=== PATIENT | male | born 1985 | race African-American/Black ===

== ENCOUNTER 2018-01-18 16:02 | Emergency (ER) | payer MEDICARE ==
[~2018-01-18] VITALS: Ht 170.2 cm; Wt 82.6 kg
[2018-01-18] MEDS ORDERED: KETOROLAC TROMETHAMINE 30 MG INJ IM ONE (16:15)
[2018-01-18] MEDS ORDERED: KETOROLAC TROMETHAMINE 30 MG INJ ONE (16:21)
[2018-01-18] MEDS ORDERED: HYDROMORPHONE 1 MG/1 ML DISP.SYRIN IV ONE (16:30)
[2018-01-18] MEDS ORDERED: ETOMIDATE 20 MG/10 ML VIAL IV ONE (16:30)
[2018-01-18] MEDS ORDERED: HYDROMORPHONE 2 MG/1 ML DISP.SYRIN ONE (16:36)
[2018-01-18] MEDS ORDERED: ETOMIDATE 20 MG/10 ML VIAL ONE (16:38)
[2018-01-18 17:43] VITALS: BP 146/90
== END 2018-01-18 17:47 | disposition home or self-care (01) ==
LOC: ER 16:04
DX: S43.005A Unspecified dislocation of left shoulder joint, initial encounter (principal); F17.200 Nicotine dependence, unspecified, uncomplicated; X58.XXXA Exposure to other specified factors, initial encounter; Y93.67 Activity, basketball; Y92.89 Other specified places as the place of occurrence of the external cause; Y99.8 Other external cause status
CPT/HCPCS: 73030; A4663; J1170; J1885; J3490